=== PATIENT | female | born 1995 ===

== ENCOUNTER 2018-01-30 07:08 | Emergency (ER) | payer MEDICAID, OTHER ==
[2018-01-30 07:29] VITALS: BMI 19.5
--- NOTE | 2018-01-30 08:19 | ED PDOC ---
History of Present Illness History of Present Illness: 23 year old female presents to the ED with sinus pain, nasal congestion, sore throat, productive cough, decreased appetite and 2 episodes of vomiting in the last week. Male friend at bedside reports she has gotten worse. She vomited twice last night. The patient also had a fever two days ago that is now resolved. Patient has been taking Motrin, Tylenol and Nyquil for her symptoms with minimal relief. Her last dose of Motrin was last night at 8 pm. She denies any other complaints. PMD: none provided HPI: Influenza Time Seen by Provider: 01/30/18 07:20 Chief Complaint: Cough, Cold, Congestion Chief Complaint (Provider): Cough, Cold, Congestion History Per: Patient Exam Limitations: no limitations Onset/Duration Of Symptoms: Days (x 1 week) Symptoms include: cough, nasal congestion, vomiting Past Medical History Reviewed: Historical Data, Nursing Documentation, Vital Signs Vital Signs: Last Vital Signs Temp 99.1 F 01/30/18 07:27 Pulse 95 H 01/30/18 07:27 Resp 18 01/30/18 07:27 BP 121/79 01/30/18 07:27 Pulse Ox 99 01/30/18 07:27 - Medical History PMH: Migraine - Surgical History Surgical History: No Surg Hx - Family History Family History: States: Unknown Family Hx - Social History Current smoker - smoking cessation education provided: No Alcohol: None Drugs: Denies - Immunization History Hx Tetanus Toxoid Vaccination: No Hx Influenza Vaccination: No Hx Pneumococcal Vaccination: No - Home Medications Home Medications: Ambulatory Orders Medication Instructions Recorded Ibuprofen [Motrin] 1 tab PO TID PRN #20 tab 10/17/17 Azithromycin [Zithromax] 250 mg PO DAILY #6 tab 01/30/18 - Allergies Allergies/Adverse Reactions: Allergies Allergy/AdvReac Type Severity Reaction Status Date / Time No Known Allergies Allergy Verified 01/30/18 07:33 Review of Systems ROS Statement: Except As Marked, All Systems Reviewed And Found Negative Constitutional: Positive for: Other (dec. appetite) ENT: Positive for: Nose Discharge, Throat Pain Respiratory: Positive for: Cough, Sputum Gastrointestinal: Positive for: Vomiting (x 2) Physical Exam - Reviewed Nursing Documentation Reviewed: Yes Vital Signs Reviewed: Yes - Physical Exam Appears: Positive for: No Acute Distress, Uncomfortable Head Exam: Positive for: ATRAUMATIC, NORMAL INSPECTION, NORMOCEPHALIC Skin: Positive for: Normal Color, Warm, Dry Eye Exam: Positive for: EOMI, Normal appearance, PERRL ENT: Positive for: Normal ENT Inspection. Negative for: Pharyngeal Erythema Neck: Positive for: Normal, Painless ROM, Supple Cardiovascular/Chest: Positive for: Regular Rate, Rhythm. Negative for: Murmur Respiratory: Positive for: Normal Breath Sounds. Negative for: Wheezing, Respiratory Distress Gastrointestinal/Abdominal: Positive for: Normal Exam, Soft. Negative for: Tenderness Back: Positive for: Normal Inspection. Negative for: L CVA Tenderness, R CVA Tenderness Extremity: Positive for: Normal ROM. Negative for: Deformity Neurologic/Psych: Positive for: Alert, Oriented. Negative for: Motor/Sensory Deficits Medical Decision Making Medical Decision Makin:05 Impression: COUGH rule out flu and pneumonia Initial Plan: --CXR --Motrin 600 mg PO --Influenza AB 08:50 Influenza AB --Results are negative. CXR FINDINGS: LUNGS: No active pulmonary disease. PLEURA: No significant pleural effusion identified. No pneumothorax apparent. CARDIOVASCULAR: No aortic atherosclerotic calcification present OSSEOUS STRUCTURES: No significant abnormalities. VISUALIZED UPPER ABDOMEN: Normal. OTHER FINDINGS: None. IMPRESSION: No acute cardiopulmonary disease appreciated. 10:35 --Patient is stable,tolerated po, feels improved and will be discharged home. Diagnosis is bronchitis. vital stable. pt will be given po abx and referred to clinic as states she doesnt have a dr. Follow up with clinic in 1-2 days. Scribe Attestation: Documented by Blaire Echeverria acting as a scribe for Negrito Bernal MD Provider Scribe Attestation: All medical record entries made by the Scribe were at my direction and personally dictated by me. I have reviewed the chart and agree that the record accurately reflects my personal performance of the history, physical exam, medical decision making, and the department course for this patient. I have also personally directed, reviewed, and agree with the discharge instructions and disposition. - ECG O2 Sat by Pulse Oximetry: 99 Disposition - Clinical Impression Clinical Impression: Bronchitis - Patient ED Disposition Is Patient to be Admitted: No Counseled Patient/Family Regarding: Studies Performed, Diagnosis, Need For Followup - Disposition Referrals: [facility] [Outside] [facility] [Outside] Disposition: Routine/Home Disposition Time: 10:20 Condition: IMPROVED Additional Instructions: follow up to clinic in 1-2 days return to the ED with any worsening or concerning symptoms Prescriptions: Azithromycin [Zithromax] 250 mg PO DAILY #6 tab Instructions: Acute Bronchitis, Adult (DC) Forms: [employer] (Green[place]ic), [facility] ED School/Work Excuse
--- NOTE | 2018-01-30 09:19 | RAD ---
Date of service: 01/30/2018 HISTORY: cough COMPARISON: No prior. TECHNIQUE: Chest PA and lateral FINDINGS: LUNGS: No active pulmonary disease. PLEURA: No significant pleural effusion identified. No pneumothorax apparent. CARDIOVASCULAR: No aortic atherosclerotic calcification present OSSEOUS STRUCTURES: No significant abnormalities. VISUALIZED UPPER ABDOMEN: Normal. OTHER FINDINGS: None. IMPRESSION: No acute cardiopulmonary disease appreciated.
[2018-01-30 10:47] VITALS: BP 118/78; PULSE 67; RESP 16; TEMP 97.9
[2018-01-30 12:38] VITALS: O2SAT 99
== END 2018-01-30 10:55 | disposition home or self-care (01) ==
LOC: H.ER 07:08
DX: J40 Bronchitis, not specified as acute or chronic (principal)

== ENCOUNTER 2018-05-18 21:39 | Emergency (ER) | payer MEDICAID ==
[2018-05-18 21:39] VITALS: BMI 19.5
[2018-05-18 21:46] VITALS: O2SAT 100
[2018-05-18] MEDS ORDERED: Lactated Ringer's 1,000 ML IV STA (22:29)
[2018-05-18 22:46] LABS: BASO % 0.7 % (0.0-2.0); EOS # 0.1 K/uL (0.0-0.7); EOS % 0.9 % (0.0-4.0); HEMOGLOBIN 11.7 g/dL (12.0-16.0); LYMPH # 1.1 K/uL (1.0-4.3); LYMPH % 16.8 % (20.0-40.0); MEAN CELL VOLUME 90.2 fl (81.0-99.0); MEAN CORPUSCULAR HEMOGLOBIN 29.9 pg (27.0-31.0); MEAN CORPUSCULAR HGB CONC 33.2 g/dL (33.0-37.0); MEAN PLATELET VOLUME 9.1 fl (7.2-11.7); MONO # 0.7 K/uL (0.0-0.8); MONO % 9.9 % (0.0-10.0); NEUT # 4.9 K/uL (1.8-7.0); NEUT % 71.7 % (50.0-75.0); RBC 3.9 Mil/uL (3.80-5.20); RED CELL DISTRIBUTION WIDTH 14.7 % (11.5-14.5); WHITE BLOOD COUNT 6.8 K/uL (4.8-10.8)
--- NOTE | 2018-05-18 23:05 | ED PDOC ---
HPI: Abdomen Time Seen by Provider: 05/18/18 21:48 Chief Complaint (Nursing): Abdominal Pain Chief Complaint (Provider): Abdominal Pain History Per: Patient History/Exam Limitations: no limitations Onset/Duration Of Symptoms: Days (x3 weeks) Additional Complaint(s): 23 y/o female who is 9 weeks presents to the ED complaining of intermittent pelvic pain for the past x3 weeks. Patient denies vaginal discharge or bleeding, urinary symptoms, vomiting, diarrhea, or constipation. This is the patient's third and she has had an elective termination and a miscarriage. Patient recently started at [facility]. Past Medical History Reviewed: Historical Data, Nursing Documentation, Vital Signs Vital Signs: Last Vital Signs Temp 98.7 F 05/18/18 21:43 Pulse 82 05/18/18 21:43 Resp 16 05/18/18 21:43 BP 130/87 05/18/18 21:43 Pulse Ox 100 05/18/18 21:43 - Medical History PMH: Migraine - Family History Family History: States: No Known Family Hx, Unknown Family Hx - Social History Current smoker - smoking cessation education provided: No - Immunization History Hx Tetanus Toxoid Vaccination: No Hx Influenza Vaccination: No Hx Pneumococcal Vaccination: No - Home Medications Home Medications: Ambulatory Orders Medication Instructions Recorded Ibuprofen [Motrin] 1 tab PO TID PRN #20 tab 10/17/17 Azithromycin [Zithromax] 250 mg PO DAILY #6 tab 01/30/18 - Allergies Allergies/Adverse Reactions: Allergies Allergy/AdvReac Type Severity Reaction Status Date / Time No Known Allergies Allergy Verified 04/21/18 22:28 Review of Systems ROS Statement: Except As Marked, All Systems Reviewed And Found Negative Gastrointestinal: Negative for: Vomiting Genitourinary Female: Positive for: Pelvic Pain. Negative for: Dysuria, Incontinence, Vaginal Discharge, Vaginal Bleeding Physical Exam - Reviewed Nursing Documentation Reviewed: Yes Vital Signs Reviewed: Yes - Physical Exam Appears: Positive for: No Acute Distress Head Exam: Positive for: ATRAUMATIC, NORMOCEPHALIC Skin: Positive for: Warm, Dry Cardiovascular/Chest: Positive for: Regular Rate, Rhythm. Negative for: Murmur Respiratory: Negative for: Accessory Muscle Use, Respiratory Distress Gastrointestinal/Abdominal: Positive for: Soft, Tenderness (tenderness to palpation in suprapubic region). Negative for: Mass, Guarding, Rebound Back: Positive for: Normal Inspection. Negative for: L CVA Tenderness, R CVA Tenderness Neurologic/Psych: Positive for: Alert. Negative for: Motor/Sensory Deficits - Laboratory Results Result Diagrams: 05/18/18 22:41 - ECG O2 Sat by Pulse Oximetry: 100 (RA) Pulse Ox Interpretation: Normal Medical Decision Making Medical Decision Making: Time: 22:29 Initial Impression: Pelvic pain in early Differential included but not limited to UTI, cystitis, ovarian cyst, ectopic , round ligament pain Initial Plan: Beta-HCG ED Urine CBC w/ diff Lactated Ringer Acetaminophen 975 mg US OB Transvag 00:00 Patient care endorsed to Dr. Bernal pending US and workup. ---- Scribe Attestation: Documented by Ramesh Rollins acting as a scribe for Anna Santos MD. Provider Scribe Attestation: All medical record entries made by the Scribe were at my direction and personally dictated by me. I have reviewed the chart and agree that the record accurately reflects my personal performance of the history, physical exam, medical decision making, and the department course for this patient. I have also personally directed, reviewed, and agree with the discharge instructions and disposition. Disposition - Clinical Impression Clinical Impression: - Patient ED Disposition Is Patient to be Admitted: Transfer of Care - Disposition Disposition: Transfer of Care Disposition Time: 00:00 Condition: STABLE Instructions: - The Second Month Forms: [employer] (Kyrgyz) Patient Signed Over To: Negrito Bernal
--- NOTE | 2018-05-19 00:05 | ED PDOC ---
- Laboratory Results Result Diagrams: 05/18/18 22:41 Lab Results: Beta HCG, Quant 253534.00 mIU/mL 05/18/18 22:41 - ECG O2 Sat by Pulse Oximetry: 100 (RA) Medical Decision Making Medical Decision Making: Time: 00:00 Patient care endorsed from Dr. Santos to provider pending US; r/o ectopic . 02:00 US Transvag Findings: Uterus measures 10.3x6.1x7 cm. Anteverted uterus. Normal cervical length measuring 3 cm. Intrauterine gestational sac measuring 3.8 cm. This corresponds to an estimated gestational age of 9 weeks. The crown-rump length measures 2.1 cm which corresponds to an estimated gestational age of 8 weeks and 5 days. The heart rate is estimated at 185 beats per minute. Unremarkable ovaries. Impression: Single, live intrauterine gestation. heart rate 185 beats per minute. Otherwise, unremarkable exam. 02:19 Patient labs and US reviewed. US shows not abnormalities and labs are unrem arkable. Patient will be discharged home. Diagnosis is . Scribe Attestation: Documented by Ramesh Rollins acting as a scribe for Negrito Bernal MD. Provider Scribe Attestation: All medical record entries made by the Scribe were at my direction and personally dictated by me. I have reviewed the chart and agree that the record accurately reflects my personal performance of the history, physical exam, medical decision making, and the department course for this patient. I have also personally directed, reviewed, and agree with the discharge instructions and di sposition. Disposition - Disposition Disposition: Routine/Home Disposition Time: 02:19 Forms: [employer] (Afghan)
[2018-05-19 02:48] VITALS: BP 117/76; PULSE 70; RESP 18; TEMP 97.7
--- NOTE | 2018-05-19 09:25 | US ---
Date of service: 05/19/2018 PROCEDURE: OB Pelvic Ultrasound HISTORY: Pelvic pain early r/o ectopic COMPARISON: None available. FINDINGS: UTERUS: Single Live intrauterine gestation. CRL measures 2.1 cm equivalent to 8 weeks and 5 days of gestational age with Gestational sac diameter measures 3.8 cm equivalent to 9 weeks and 0 days of gestational age. age (Ultrasound estimated): 8 weeks and 6 days Date of delivery (Ultrasound estimated) : 12/23/2018 Heart rate: 185 bpm. Marisol-gestational hemorrhage: None. Uterus measures 10.3 x 6.1 x 7.0 cm. No mass CERVIX: Long and closed. No cervical abnormality seen. RIGHT OVARY: Measures 3.4 x 2.1 x 1.7 cm. No mass. Normal flow. LEFT OVARY: Measures 3.6 x 2.1 x 1.8 cm. No mass. Normal flow. FREE FLUID: None. OTHER FINDINGS: None. IMPRESSION: Single live intrauterine gestation with mean gestational age of 8 weeks and 6 days. The estimated date of delivery by ultrasound is 12/23/2018. The ultrasound dates correspond with the clinical dates. A preliminary report was provided by [facility].
== END 2018-05-19 02:38 | disposition home or self-care (01) ==
LOC: H.ER 21:39
DX: O26.891 Other specified pregnancy related conditions, first trimester (principal); Z3A.08 8 weeks gestation of pregnancy
CPT/HCPCS: 76817; 81025; 84702; 85025; 96360; 99284; J7120